=== PATIENT | female | born 1980 | race Caucasian/White ===

== ENCOUNTER 2019-05-20 19:45 | Emergency (ER) | payer OTHER ==
[~2019-05-20] VITALS: Ht 167.6 cm; Wt 63.5 kg
[2019-05-20] MEDS ORDERED: ZPAK PO (19:56)
[2019-05-20] MEDS ORDERED: AMOXICILLIN 50500 M1 PO (20:02)
[2019-05-20] MEDS ORDERED: PERIDEX15 ML SWISH&SPIT (20:02)
[2019-05-20] MEDS ORDERED: TYLENOL WITH CO1 TA1 PO (20:02)
[2019-05-20 20:09] VITALS: BP 129/78
== END 2019-05-20 20:10 | disposition home or self-care (01) ==
LOC: M.ERS 19:45
DX: K04.7 Periapical abscess without sinus (principal)